=== PATIENT | male | born 1970 | race Caucasian/White ===

== ENCOUNTER 2023-07-16 23:55 | Emergency (ER) | payer OTHER ==
[~2023-07-16] VITALS: Ht 160 cm; Wt 102.1 kg
[2023-07-17] MEDS ORDERED: ACETAMINOPHEN ES 500 MG TABLET PO ONE (01:30)
[2023-07-17] MEDS ORDERED: ACETAMINOPHEN ES 500 MG TABLET ONE (01:35)
[2023-07-17 04:51] VITALS: BP 149/98; TEMP 208.2; O2SAT 97
== END 2023-07-17 04:52 | disposition home or self-care (01) ==
LOC: ER 07-17
DX: S00.01XA Abrasion of scalp, initial encounter (principal); M25.532 Pain in left wrist; R07.89 Other chest pain; R51.9 Headache, unspecified; V89.2XXA Person injured in unspecified motor-vehicle accident, traffic, initial encounter; Y93.89 Activity, other specified; Y92.89 Other specified places as the place of occurrence of the external cause; Y99.8 Other external cause status
CPT/HCPCS: 70450-TC; 71045-TC; 73110